=== PATIENT | female | born 1930 | race African-American/Black ===

== ENCOUNTER 2018-04-13 19:12 | Inpatient (IN) ==
[2018-04-13] MEDS ORDERED: LACTATED RINGERS 500 ML IV ONE (19:49)
[2018-04-13 21:00] LABS: Basophils % 0.5 % (0.0-0.8); Eosinophils # 0.2 10*3/uL (0.0-0.87); Eosinophils % 2.7 % (0.00-10.9); Hematocrit 42.8 VOL% (35.7-47.0); Hemoglobin 13.6 GM/DL (12.0-16.0); Immature Granulocytes % 0.4 %; Immature Granulocytes Absolute 0.02 #; Lymphocytes # 1.2 10*3/uL (1.4-4.0); Lymphocytes % 22.3 % (21.3-54.2); Mean Corpuscular HGB Conc 31.8 GM/DL (32-36); Mean Corpuscular Hemoglobin 30 PG (27-34); Mean Corpuscular Volume 94.5 FL (87-102); Mean Platelet Volume 11.3 FL (9.6-12.0); Monocytes # 0.6 10*3/uL (0.11-0.8); Monocytes % 11.1 % (1.7-12.7); Neutrophils # 3.5 10*3/uL (1.4-7.4); Platelet Count 173 T/CUMM (130-400); Red Blood Count 4.53 MC/CUMM (3.8-5.5); White Blood Count 5.5 T/CUMM (4-12)
[2018-04-13 21:03] LABS: Apearance,Urine CLEAR (Clear); Bilirubin,Urine Negative (Negative); Blood, Urine Small mg/dL (Negative); Glucose,Urine (UA) Negative (Negative); Ketones,Urine Negative (Negative); Mucus,Urine Occasional /LPF (Occasional); Nitrite,Urine Negative (Negative); Protein,Urine 30 MG/DL; RBC,Urine 1 /HPF (0-4); Squamous Epithelial Cell,Urine Occasional /HPF (0-10); Urine Color Straw (Yellow); Urine Specific Gravity 1.006 (1.001-1.035); Urine Urobilinogen < 2.0 EU/DL (0.2-1.0); WBC,Urine 2 /HPF (0-6)
[2018-04-13 21:13] LABS: INR 1.2; PT Patient Result 12.3 SECS; Partial Thromboplastin Time 30.6 SECS (0-40)
[2018-04-13 21:27] LABS: Troponin I Only < 0.015 NG/ML (0.00-0.045)
[2018-04-13] MEDS ORDERED: ASPIRIN 325 MG TABLET PO STA (21:27)
[2018-04-13 21:35] LABS: Albumin 3.7 G/DL (3.4-5.0); Bilirubin,Total 0.8 MG/DL (0.2-1.0); Calcium 9.6 MG/DL (8.5-10.1); Free T4 (Free Thyroxine) 0.94 NG/DL (0.76-1.46); Osmolality,Calculated 273.5 MOS/KG (273-304); Potassium 3.4 MMOL/L (3.5-5.1); Thyroid Stimulating Hormone 1.18 uIU/ml (0.358-3.74); Total Protein 8.8 G/DL (6.4-8.3)
[2018-04-13 21:45] LABS: Lactic Acid 1.1 MMOL/L (0.4-2.0)
[2018-04-13] MEDS ORDERED: hydrALAZINE 20 MG/1 ML VIAL IV STA (23:56)
[2018-04-13] MEDS ORDERED: CYCLOBENZAPRINE 10 MG TABLET PO PRN (23:56)
[2018-04-13] MEDS ORDERED: ONDANSETRON 4 MG/2 ML VIAL IV PRN (23:56)
[2018-04-13] MEDS ORDERED: CYCLOBENZAPRINE 10 MG TABLET PO STA (23:56)
[2018-04-13] MEDS ORDERED: FUROSEMIDE 40 MG TABLET PO PRN (23:56)
[2018-04-13] MEDS ORDERED: ACETAMINOPHEN 325 MG TABLET PO PRN (23:56)
[2018-04-13] MEDS ORDERED: POTASSIUM CHLORIDE 20 MEQ TABLET PO STA (23:56)
[2018-04-13] MEDS ORDERED: WARFARIN 5 MG TABLET PO SCH (23:56)
[2018-04-14] MEDS: METOPROLOL TARTRATE 50 MG TABLET PO SCH ×3 (01:15→20:03)
[2018-04-14 01:16] LABS: Risk Ratio 2.44; VLDL CHOLESTEROL 13.8 MG/DL
[2018-04-14] MEDS: DILTIAZEM CD 120 MG CAPSULE PO SCH (10:57)
[2018-04-14] MEDS: SPIRONOLACTONE 25 MG TABLET PO SCH (10:57)
[2018-04-14] MEDS: DOCUSATE SODIUM 100 MG CAPSULE PO SCH ×2 (10:57→20:07)
[2018-04-14] MEDS: PANTOPRAZOLE 40 MG TABLET PO SCH (10:58)
[2018-04-14] MEDS: ATORVASTATIN 40 MG TABLET PO SCH (10:58)
[2018-04-14] MEDS: DORZOLAMIDE 2% OPH SOLN 10 ML BOTTLE BOTH EYES SCH ×2 (11:22→20:29)
[2018-04-14] MEDS ORDERED: SODIUM CHLORIDE 0.9% 1,000 ML IV SCH (11:30)
[2018-04-14 14:46] LABS: INR 1.1; PT Patient Result 11.8 SECS
[2018-04-14] MEDS: DEXTROSE 5% NACL 0.9% 1,000 ML IV SCH (16:12)
[2018-04-14] MEDS: APIXABAN 5 MG TABLET PO SCH (20:03)
[2018-04-14] MEDS: LATANOPROST 0.005% OPH SOLN 2.5 ML BOTTLE BOTH EYES SCH (20:07)
[2018-04-14] MEDS ORDERED: ENOXAPARIN 40 MG/0.4 ML SYRINGE SUBCUT SCH (21:00)
[2018-04-15] MEDS: DEXTROSE 5% NACL 0.9% 1,000 ML IV SCH ×3 (02:59→20:51)
[2018-04-15 05:00] LABS: Basophils % 0.7 % (0.0-0.8); Eosinophils # 0.4 10*3/uL (0.0-0.87); Eosinophils % 7.6 % (0.00-10.9); Hematocrit 43.1 VOL% (35.7-47.0); Hemoglobin 13.3 GM/DL (12.0-16.0); Immature Granulocytes % 0.4 %; Immature Granulocytes Absolute 0.02 #; Lymphocytes # 1.3 10*3/uL (1.4-4.0); Lymphocytes % 22.8 % (21.3-54.2); Mean Corpuscular HGB Conc 30.9 GM/DL (32-36); Mean Corpuscular Hemoglobin 30 PG (27-34); Mean Corpuscular Volume 95.8 FL (87-102); Mean Platelet Volume 11.3 FL (9.6-12.0); Monocytes # 0.8 10*3/uL (0.11-0.8); Monocytes % 14.6 % (1.7-12.7); Neutrophils % 53.9 % (38.7-73.9); Platelet Count 164 T/CUMM (130-400); White Blood Count 5.5 T/CUMM (4-12)
[2018-04-15 05:06] LABS: INR 1.3; PT Patient Result 13.6 SECS
[2018-04-15 05:35] LABS: Bilirubin,Total 1.2 MG/DL (0.2-1.0); Calcium 9.1 MG/DL (8.5-10.1); Osmolality,Calculated 280.3 MOS/KG (273-304); Total Protein 7.8 G/DL (6.4-8.3)
[2018-04-15 05:36] LABS: Potassium 4.3 MMOL/L (3.5-5.1)
[2018-04-15] MEDS: DOCUSATE SODIUM 100 MG CAPSULE PO SCH ×2 (08:59→20:46)
[2018-04-15] MEDS: METOPROLOL TARTRATE 50 MG TABLET PO SCH (09:00)
[2018-04-15] MEDS: DILTIAZEM CD 120 MG CAPSULE PO SCH (09:00)
[2018-04-15] MEDS: SPIRONOLACTONE 25 MG TABLET PO SCH (09:00)
[2018-04-15] MEDS: APIXABAN 5 MG TABLET PO SCH ×2 (09:00→20:46)
[2018-04-15] MEDS: PANTOPRAZOLE 40 MG TABLET PO SCH (09:00)
[2018-04-15] MEDS: ATORVASTATIN 40 MG TABLET PO SCH (09:00)
[2018-04-15] MEDS: DORZOLAMIDE 2% OPH SOLN 10 ML BOTTLE BOTH EYES SCH ×2 (09:01→20:45)
[2018-04-15] MEDS ORDERED: WARFARIN 3 MG TABLET PO SCH (18:00)
[2018-04-15] MEDS: LATANOPROST 0.005% OPH SOLN 2.5 ML BOTTLE BOTH EYES SCH (20:46)
[2018-04-16] MEDS: METOPROLOL TARTRATE 50 MG TABLET PO SCH ×2 (04:14→08:48)
[2018-04-16] MEDS: DEXTROSE 5% NACL 0.9% 1,000 ML IV SCH (06:24)
[2018-04-16 06:58] LABS: Basophils % 0.3 % (0.0-0.8); Eosinophils # 0.4 10*3/uL (0.0-0.87); Eosinophils % 5.4 % (0.00-10.9); Hematocrit 41.7 VOL% (35.7-47.0); Hemoglobin 13.3 GM/DL (12.0-16.0); Immature Granulocytes % 0.3 %; Immature Granulocytes Absolute 0.02 #; Lymphocytes # 1.3 10*3/uL (1.4-4.0); Lymphocytes % 19.3 % (21.3-54.2); Mean Corpuscular HGB Conc 31.9 GM/DL (32-36); Mean Corpuscular Hemoglobin 30 PG (27-34); Mean Corpuscular Volume 93.5 FL (87-102); Mean Platelet Volume 11.8 FL (9.6-12.0); Monocytes # 0.8 10*3/uL (0.11-0.8); Monocytes % 11.2 % (1.7-12.7); Neutrophils # 4.3 10*3/uL (1.4-7.4); Neutrophils % 63.5 % (38.7-73.9); Platelet Count 169 T/CUMM (130-400); Red Blood Count 4.46 MC/CUMM (3.8-5.5); Red Cell Distribution Width 14.9 % (9.3-17.3); White Blood Count 6.8 T/CUMM (4-12)
[2018-04-16 07:14] LABS: INR 1.3; PT Patient Result 13.6 SECS
[2018-04-16 07:22] LABS: Albumin 2.6 G/DL (3.4-5.0); Bilirubin,Total 1.1 MG/DL (0.2-1.0); Calcium 8.5 MG/DL (8.5-10.1); Osmolality,Calculated 280.1 MOS/KG (273-304); Potassium 4.1 MMOL/L (3.5-5.1); Total Protein 6.6 G/DL (6.4-8.3)
[2018-04-16] MEDS: ATORVASTATIN 40 MG TABLET PO SCH (08:48)
[2018-04-16] MEDS: DILTIAZEM CD 120 MG CAPSULE PO SCH (08:49)
[2018-04-16] MEDS: PANTOPRAZOLE 40 MG TABLET PO SCH (08:49)
[2018-04-16] MEDS: SPIRONOLACTONE 25 MG TABLET PO SCH (08:49)
[2018-04-16] MEDS: APIXABAN 5 MG TABLET PO SCH (08:49)
[2018-04-16] MEDS: DOCUSATE SODIUM 100 MG CAPSULE PO SCH (08:49)
[2018-04-16] MEDS: DORZOLAMIDE 2% OPH SOLN 10 ML BOTTLE BOTH EYES SCH (09:37)
[2018-04-16 12:59] VITALS: BP 165/67
[2018-04-16] MEDS ORDERED: WARFARIN 4 MG TABLET PO SCH (18:00)
== END 2018-04-16 15:10 | DRG 65 ==
LOC: EDBD → EDUNIT# → N.ED 19:12 → N.EDINP 22:20 → SUATTDRO 22:20 → N.4E 23:50
PROVIDERS: ADMIT Internal Medicine Infectious Disease; ATTEND Internal Medicine